=== PATIENT | male | born 1965 | race Caucasian/White ===

== ENCOUNTER 2018-03-21 15:38 | Emergency (ER) | payer MEDICAID ==
[~2018-03-21] VITALS: Ht 165.1 cm; Wt 95.0 kg
[2018-03-21 16:26] LABS: BASOPHILS % (AUTO) 0.5 % (0-1); EOSINOPHILS # (AUTO) 0.2 X10'3 (0-0.9); EOSINOPHILS % (AUTO) 2.6 % (0-6); HEMATOCRIT 47.6 % (42.0-52.0); HEMOGLOBIN 16.1 g/dl (14.0-17.9); LYMPHOCYTES # (AUTO) 1.4 X10'3 (1.1-4.8); LYMPHOCYTES % (AUTO) 16.5 % (21-51); MEAN CORPUSCULAR HEMOGLOBIN 30.6 PG (27.0-31.0); MEAN CORPUSCULAR HGB CONC 33.9 % (33.0-36.5); MEAN CORPUSCULAR VOLUME 90.5 FL (78-98); MEAN PLATELET VOLUME 8.4 FL (7.4-10.4); MONOCYTES # (AUTO) 0.8 X10'3 (0-0.9); MONOCYTES % (AUTO) 9.9 % (2-12); NEUTROPHILS % (AUTO) 70.5 % (42-75); PLATELET COUNT 220 X10'3 (140-440); RED BLOOD COUNT 5.27 X10'6 (4.70-6.10); RED CELL DISTRIBUTION WIDTH 13.6 % (11.5-14.5); WHITE BLOOD COUNT 8.5 X10'3 (4.5-11.0)
[2018-03-21 16:40] LABS: ALANINE AMINOTRANSFERASE 102 U/L (12-78); ALBUMIN 3.6 G/DL (3.4-5.0); ALBUMIN/GLOBULIN RATIO 0.9 (1.1-1.5); ALKALINE PHOSPHATASE 95 IU/L (46-116); ANION GAP 8 (8-16); ASPARTATE AMINO TRANSFERASE 40 U/L (10-37); BILIRUBIN,TOTAL 0.4 MG/DL (0.1-1.0); BLOOD UREA NITROGEN 15 MG/DL (7-18); BUN/CREATININE RATIO 11.5 (5.4-32.0); CALCIUM 9.1 MG/DL (8.5-10.1); CHLORIDE 97 MMOL/L (99-107); GLUCOSE 240 MG/DL (70-104); POTASSIUM 3.8 MMOL/L (3.5-5.1); SODIUM 134 MMOL/L (135-145); TOTAL CARBON DIOXIDE 29.2 MMOL/L (24-32); TOTAL PROTEIN 7.8 G/DL (6.4-8.2); eGFR 58 ML/MIN
[2018-03-21 16:49] LABS: ETHANOL < 0.010 GM/DL (0.0-0.010)
[2018-03-21 17:47] VITALS: BP 185/112
== END 2018-03-21 17:48 | disposition home or self-care (01) ==
LOC: ER 15:39
DX: E11.9 Type 2 diabetes mellitus without complications (principal); R44.2 Other hallucinations; I10 Essential (primary) hypertension; R94.5 Abnormal results of liver function studies; E66.9 Obesity, unspecified
CPT/HCPCS: 36415; 70450; 80053; 80320; 84443; 84484; 85025; 99285

== ENCOUNTER 2018-08-30 05:58 | Emergency (ER) | payer MEDICAID ==
[~2018-08-30] VITALS: Ht 165.1 cm; Wt 77.8 kg
[2018-08-30 06:14] VITALS: BP 139/94
[2018-08-30] MEDS ORDERED: CLIN-96 PO (06:49)
[2018-08-30] MEDS ORDERED: CIPR-230 PO (06:49)
== END 2018-08-30 07:06 | disposition home or self-care (01) ==
LOC: ER 05:58
DX: K11.20 Sialoadenitis, unspecified (principal); I10 Essential (primary) hypertension; Z98.890 Other specified postprocedural states; Z79.2 Long term (current) use of antibiotics
CPT/HCPCS: 99283

== ENCOUNTER 2025-01-07 12:02 | Inpatient (IN) | payer MEDICAID ==
[~2025-01-07] VITALS: Ht 162.6 cm; Wt 82.7 kg
[~2025-01-07 12:02] MED LIST: CLIN-224 PO
[2025-01-07 12:54] LABS: MEAN PLATELET VOLUME 8.7 FL (7.4-10.4); RED CELL DISTRIBUTION WIDTH 14.3 % (11.5-14.5)
[2025-01-07 13:05] LABS: CREATININE 0.90 MG/DL (0.60-1.10); TOTAL CARBON DIOXIDE 24.3 MMOL/L (24-32); eCRCL 76 ML/MIN; eGFR 87 ML/MIN
--- NOTE | 2025-01-07 13:09 | RADIOLOGY REPORT ---
EXAM: DI CHEST,SINGLE VIEW Indication: pain Technique: Single frontal view of the chest was obtained Comparison: None FINDINGS: Lines and Tubes: None Lungs: No focal consolidation. Pleura: No effusion. No pneumothorax. Cardiomediastinal contours: Unremarkable Bones: No acute osseous abnormality. IMPRESSION: No acute cardiopulmonary disease.
[2025-01-07 13:29] LABS: LEUKOCYTE ESTERASE ,URINE NEGATIVE (Neg); NITRITES, URINE NEGATIVE (Neg); OCCULT BLOOD,URINE TRACE-INTACT (Neg)
[2025-01-07 13:32] LABS: UA COLLECTION TYPE CLN CATCH MIDSTREAM
[2025-01-07 13:46] LABS: MUCUS STRANDS MODERATE /LPF (Neg); SQUAMOUS EPITHELIAL CELL,UR FEW /LPF (FEW)
[2025-01-07 13:47] LABS: COARSE GRANULAR CAST 0-3 /LPF (NEGATIVE)
--- NOTE | 2025-01-07 15:27 | Physician Documentation ---
History of Present Illness ~ Chief Complaint: Bite-animal Stated Complaint: HAND SWELLING Time Seen by MD: 14:12 Primary Medical Doctor: Tesha Champagne [facility] This very pleasant 59-year-old male diabetic presents to the ED with a complaint of a cat bite which occurred two days ago. States that pain and swelling has not increased in his left hand and redness has started traveling up his left arm into his axillary region where he is very tender. States he felt generally ill the last day and thought he could gets through the developing infection however today he presents for evaluation Denies any nausea vomiting or diarrhea Day of Onset: Jan 07, 2025 Tetanus within 5 years?: No Medication Reconciliation Allergies: Coded Allergies: No Known Allergies (Unverified , 03/21/18) Miscellaneous Medications Home Med List (No Home Medications), (Reported) Discontinued Medications Clindamycin HCL* (Clindamycin HCL*), 1 CAP PO Q6H Discontinued Reason: patient no longer taking Past Medical History Past Medical History: Hypertension, Extremity Fracture Past Surgical History: orthopedic surgeries Alcohol Use: Occasionally Drug Use: none Lives In: Home Review of Systems All Other Systems at this time: Reviewed and Negative ROS As stated above in the HPI, otherwise all systems are reviewed and negative. Constitutional: Reports: no symptoms reported Physical Exam Vital Signs: Temperature: 99.2, Source: Oral, Heart Rate: 95, Respiratory Rate: 18, BP: 156/104, Pulse Oximetry: 95, Weight: 82.700 Oxygen Flow Rate: 0 Physical Exam General: Alert, no apparent distress. Extremities: Normal range of motion, no deformity. Notable swelling in the left hand with gross erythema. Erythema travels up the left arm into the axillary region. Tender lymph nodes in the axillary region Neurologic: Oriented x4. Psychiatric: Normal mood and affect. Skin: Normal color, warm and dry. No edema, no ecchymosis. Progress Results/Orders Results/Orders Orders - SY WATSON HOUSE DECORATOR Hand, Complete (3vw Min) (01/07/25 16:19) Page Hospitalist (01/07/25 ) Completed Orders - SY WATSON HOUSE DECORATOR Hand, Complete (3vw Min) (01/07/25 16:19) Ampicillin/Sulbac 3gm/Ns 100ml (Unasyn 3 (01/07/25 15:54) Normal Saline 1000ml (0.9% Sodium Chlori (01/07/25 15:20) Medications Received in ER Medications (Trade) Dose Ordered Sig/Magdalena Route PRN Reason Start Time Stop Time Status Last Admin Dose Admin (0.9% sodium chloride (NS) 1000ml IV soln) 2,000 ml ONCE ONCE IVB 01/07/25 15:20 01/07/25 15:21 DC 01/07/25 15:48 2,000 ML Vital Signs 01/07/25 01/07/25 01/07/25 01/07/25 12:26 12:55 13:55 15:13 Temp 99.2 Pulse 100 96 98 95 Resp 18 18 17 18 B/P (MAP) 179/100 162/98 (119) 181/107 (131) 156/104 (121) Pulse Ox 98 98 97 95 O2 Flow Rate 0 0 0 Laboratory Tests Test 01/07/25 12:40 01/07/25 13:17 White Blood Count 11.1 H Red Blood Count 5.30 Hemoglobin 16.5 Hematocrit 48.9 Mean Corpuscular Volume 92.1 Mean Corpuscular Hemoglobin 31.2 H Mean Corpuscular Hemoglobin Concent 33.8 Red Cell Distribution Width 14.3 Platelet Count 181 Mean Platelet Volume 8.7 Neutrophils (%) (Auto) 76.7 H Lymphocytes (%) (Auto) 11.0 L Monocytes (%) (Auto) 11.1 Eosinophils (%) (Auto) 0.6 Basophils (%) (Auto) 0.6 Neutrophils # (Auto) 8.5 H Lymphocytes # (Auto) 1.2 Monocytes # (Auto) 1.2 H Eosinophils # (Auto) 0.1 Basophils # (Auto) 0.1 CBC Comment Sodium Level 134 L Potassium Level 4.0 Chloride Level 98 L Carbon Dioxide Level 24.3 Anion Gap 12 Blood Urea Nitrogen 14 Creatinine 0.90 Estimated GFR/1.73 m2 87 BUN/Creatinine Ratio 15.6 Glucose Level 239 H Lactic Acid Level 1.5 Calcium Level 9.3 Albumin 3.8 Procalcitonin < 0.05 Chemistry Comments Urine Specimen Description Cln catch midstream Urine Color Dark yellow Urine Clarity Clear Urine pH 6.0 Urine Specific Valera >=1.030 Urine Protein 100 H Urine Glucose (UA) 100 H Urine Ketones 15 H Urine Occult Blood Trace-intact Urine Nitrite Negative Urine Bilirubin Small Urine Urobilinogen 1.0 Urine Leukocyte Esterase Negative Urine RBC 0-2 Urine WBC 0-4 Urine Squamous Epithelial Cells Few Urine Bacteria Few Urine Coarse Granular Casts 0-3 Urine Mucus Moderate Urine Culture Indicated Not ind Volume Urine Centrifuged 10 ml Urine Comment Microbiology Date/Time Source Procedure Growth Status 01/07/25 12:44 Blood Arm Right Blood Culture - Preliminary NEGATIVE (LESS THAN 24 HOURS) Resulted Medical Decision Making Findings Due to this patient being a diabetic and having the early stages of a developing cat bite infection he is high risk for failed outpatient antibiotic therapy.. Requested hospital admission for these reasons and along with the IV antibiotics and fluid resuscitation Differential Dx:Considerations: Include: Abrasion, Allergic reaction, Anaphylaxis, Cellulitis, Contusion, Fracture, Hematoma, Insect envenomation, Laceration, Neurovascular injury, Punture wound, Retained foreign body, Urticari a, Other Departure Disposition: 09 ADMITTED INPATIENT Impression: Primary Impression: Cat bite Referrals: NO PRIMARY CARE PROVIDER (PCP) Signature Scribe Signature: v Attestation: Scribed for Sy Watson Spray Painter Helper by Sy Jackson NP . 01/07/25 15:25 SY WATSON NP Jan 07, 2025 15:26
[2025-01-07] MEDS: normal saline 1000ML IV soln IVB ONE (15:48)
[2025-01-07] MEDS ORDERED: HYDROcodone/acetaminophen 10/325mg tab PO PRN (16:10)
[2025-01-07] MEDS ORDERED: mag hydrox/Alum hydrox/simeth 30ml oral suspension PO PRN (16:10)
[2025-01-07] MEDS ORDERED: potassium Cl 40MEQ/1/2NS 520ml 520 ML IV PRN (16:10)
[2025-01-07] MEDS ORDERED: magnesium sulf-water 2g/50mL 50 ML IV PRN (16:10)
[2025-01-07] MEDS ORDERED: ondansetron/PF 4mg/2ml inj IV PRN (16:10)
[2025-01-07] MEDS ORDERED: magnesium hydroxide 30ml (MOM) UD suspension PO PRN (16:10)
[2025-01-07] MEDS ORDERED: magnesium sulf-water 4G/100mL 100 ML IV PRN (16:10)
[2025-01-07] MEDS ORDERED: magnesium Cl slow-release 64mg tablet PO PRN (16:10)
[2025-01-07] MEDS ORDERED: potassium Cl 20 mEq SR tablet PO PRN (16:10)
[2025-01-07] MEDS ORDERED: haloperidol lactate 5mg/ml inj IM PRN (16:15)
[2025-01-07] MEDS ORDERED: glucagon, human recombinant 1mg kit SUBCUT PRN (16:15)
[2025-01-07] MEDS ORDERED: DEXTROSE 15 GM of carb/4 tabs (each vial/BOTTLE has 4 tablets) PO PRN ×2 (16:15)
[2025-01-07] MEDS ORDERED: tetanus & diphtheria toxoid (Td) vaccine 0.5ml SYRINGE IMVAC ONE ×2 (16:15→17:35)
[2025-01-07] MEDS: ampicillin/sulbac 3gm/NS 100ml 100 ML IV ONE (16:15)
[2025-01-07] MEDS ORDERED: dextrose 50%-water 50ml dispensing syringe IV PRN ×2 (16:15)
--- NOTE | 2025-01-07 16:34 | HISTORY AND PHYSICAL-Residence ---
History & Physical Providers to CC Resident Creating Document: ROSE LAYPAUL ~ History of Present Illness Primary Medical Doctor: Tesha Champagne Reason for Admit\Complaint: Left hand cellulitis History of Present Illness This is a 59-year-old male patient with a past medical history of alcohol use disorder, untreated type 2 diabetes mellitus and hypertension, presented to the ER for progressive pain, erythema and warmth in the left hand radiating to the forearm after a cat bite two days ago. These symptoms have worsened significantly today and are associated with left axillar lymphadenopathy. He had one episode of 101F yesterday but denies nausea, vomiting or any systemic symptoms. Patient has type 2 diabetes mellitus and hypertension but has not taking any medication for the last few months because he has increased the alcohol intake to almost half bottle of vodka every night. Patient does not remember last tetanus shot, probably more than five years ago.No other complaint reported. Allergies: Coded Allergies: No Known Allergies (Unverified , 03/21/18) Home Medications Home Medications Active Clindamycin HCL* (Clindamycin HCl) 300 Mg Capsule 1 Cap PO Q6H Past Medical History Past Medical History Untreated type 2 diabetes mellitus Untreated hypertension Alcohol use disorder Past Surgical History Surgical History Comment None Past Social History Smoking: Non-Smoker Alcohol Use: Heavy Drug Use: None Lives with: Alone Lives In: Home Occupation: other ROS All Other Systems: Reviewed and Negative Constitutional: Reports: no symptoms reported Eyes: Reports: no symptoms reported ENT: Reports: no symptoms reported Respiratory: Reports: no symptoms reported Cardiovascular: Reports: no symptoms reported Gastrointestinal: Reports: no symptoms reported Genitourinary: Reports: no symptoms reported Male Genitalia: Reports: no symptoms reported Neurological: Reports: no symptoms reported Musculoskeletal: Reports: joint pain Integumentary: Reports: see HPI, lesions Allergic/Immunologic: Reports: no symptoms reported Hematologic/Lymphatic: Reports: no symptoms reported Endocrine: Reports: no symptoms reported Psychiatric: Reports: no symptoms reported Exam Vitals: Vital Signs Date Time Temp Pulse Resp B/P (MAP) Pulse Ox O2 Delivery O2 Flow Rate FiO2 01/07/25 15:13 95 18 156/104 (121) 95 0 01/07/25 12:26 99.2 General: General: Awake and Alert, no acute distress. HEENT: Conjunctiva pink, Sclera clear, Mucus Membranes moist. Neck: Supple without masses and tenderness. Resp: Unlabored. Lungs clear to auscultation bilaterally. Heart: Regular Rate and rhythm, normal S1 and S2 without murmur, rub or gallop. Abdomen: Soft and non tender no organomegaly Extremities: No cyanosis,clubbing or edema. Skin: Warm and Dry. Perforated lesion in the dorsal aspect of the left hand associated with significant left hand erythema, warmth extending through the forearm up into the axilla. Palpable left axillary lymphadenopathy. Diagnostic Data Last Recorded Lab Results: 01/07/25 1240 01/07/25 1240 Advance Care Planning Advanced Care plannin - 30 Minutes (Patient wants to be full code) Additional Plan Assessment and plan 1. Sepsis secondary to severe left hand cellulitis secondary to cat bite 2. Left upper extremity lymphangitis Assessment Domestic cat bite in the left head two days ago Rapidly progressive erythema, warmth, pain and lymphadenopathy WBC 11.1, procalcitonin < 0.05, lactic acid 1.5 3 SIRS criteria (Temp > 100.4, Heart rate > 90, present source of infection) Left hand x-ray: Mild dorsal hand soft tissue edema. Plan Received one dose of ampicillin sulbactam in the ER Received 2000 mL of normal saline in the ER Started on Zosyn q8h Started on lactated ringer 100 mL/hr Ordered tetanus vaccine Ordered left hand MRI 3. Untreated type 2 diabetes mellitus 4. Untreated hypertension Assessment Patient noncompliant with medication for months BP 181/107mmHg, glucose 239 Plan Ordered A1c Ordered lipid panel, BNP Started on Lantus 12 units Started on lisinopril 10 mg Hyper/hypoglycemia protocol placed Hydralazine 10 mg IV p.r.n. 5. Alcohol use disorder Patient drinks half a bottle of vodka every night Mild alcohol withdrawal protocol placement Social service consulted Code Status: Full code DVT prophylaxis: Enoxaparin Analgesia/sedation: Morphine/[place] Line/tube: PIV GI prophylaxis: None Nutrition: 75g carb diet Prognosis: Guarded Physical therapy: Ordered Disposition: Admit to surgical floor. Pending left hand MRI. Resident MD attestation The above note has been reviewed and supervised by a senior resident PGY2/PGY3 Patient was seen, examined and discussed with the attending physician Date of Service: Jan 07, 2025 Billing Provider: LIZ CHAN MD Common Visit Codes: [id number] INP/OBS CARE (HIGH) Secondary Visit Codes: [id number] CARE PLAN 30 MINUTES ROSE LAY, RES Jan 07, 2025 16:34 LIZ CHAN MD Jan 09, 2025 07:42
[2025-01-07] MEDS ORDERED: NO HOME MEDS (16:36)
--- NOTE | 2025-01-07 16:46 | RADIOLOGY REPORT ---
CLINICAL INDICATION: animal bite LT. HAND TECHNIQUE: 3 radiographic views of the left hand were obtained. Comparison: None FINDINGS/IMPRESSION: There is no evidence of acute fracture or dislocation. The visualized joint space is well maintained. The alignment is anatomical. There is no radiopaque foreign body. Mild dorsal hand soft tissue edema.
[2025-01-07] MEDS: ringers solution, lacted 1,000 ML IV SCH (16:56)
[2025-01-07] MEDS: INSULIN LISPRO 100 UNIT/ML INSULN.PEN MULTI-DOSE SQ SCH (17:25)
[2025-01-07 18:00] VITALS: BP 159/93; PULSE 94; RESP 17; TEMP 98.1; O2SAT 99
[2025-01-07 18:48] LABS: CHOL/HDL RATIO 3.3 (0.00-4.99); LDL CHOLESTEROL 153 MG/DL (50-100); PRO BRAIN NATRIURETIC PEPTIDE 142 PG/ML (0-125)
[2025-01-07 20:00] VITALS: RESP 18; O2SAT 96
[2025-01-07] MEDS: K and/or MAG REPLACEMENT MC SCH (20:00)
--- NOTE | 2025-01-07 21:49 | RADIOLOGY REPORT ---
EXAM: MR MRI UPPER EXTREMITY LEFT DATE OF SERVICE: 01/07/2025 08:47 PM ORDERING PHYSICIAN: LIZ CHAN RES REASON FOR EXAM: Concern for osteomyelitis after cat bite TECHNIQUE: MRI images of the left wrist were acquired without IV contrast. COMPARISON: None FINDINGS: Evaluation is limited due to image degradation secondary to patient motion. There is diffuse soft tissue swelling. There is no abnormal bone marrow signal changes to suggest acu te osteomyelitis. No discrete fluid collection is seen. The muscular volume is maintained with no yvonne dence for significant myositis. The major extension add flexor tendons of the wrist are intact with no evidence for significant tenos ynovitis. IMPRESSION: Extensive cellulitis. No Mr. evidence for acute osteomyelitis.
[2025-01-07 22:00] VITALS: BP 153/98; PULSE 88; RESP 16; TEMP 98.2; O2SAT 96
[2025-01-07] MEDS: HYDROcodone/acetaminophen 5mg/325mg tablet PO PRN (22:05)
[2025-01-07] MEDS: docusate sod 100mg capsule PO SCH (22:05)
[2025-01-07] MEDS: insulin glargine (Lantus) pen - multi-dose SQ SCH (22:24)
[2025-01-07] MEDS: piperacillin/tazo 3.375gm/50ml 50 ML IV SCH (23:09)
[2025-01-08] VITALS (8 sets, daily range): BP systolic 124–171; BP diastolic 77–98; PULSE 87–95; RESP 16–18; TEMP 97.4–98.6; O2SAT 97–99
[2025-01-08 04:47] LABS: INR 1.1 INR
[2025-01-08 04:58] LABS: CREATININE 0.70 MG/DL (0.60-1.10); PHOSPHORUS 2.9 MG/DL (2.3-4.5); TOTAL CARBON DIOXIDE 22.7 MMOL/L (24-32); eCRCL 97 ML/MIN; eGFR > 90 ML/MIN
[2025-01-08 06:49] LABS: MEAN PLATELET VOLUME 8.6 FL (7.4-10.4); RED CELL DISTRIBUTION WIDTH 13.6 % (11.5-14.5)
[2025-01-08] MEDS: tetanus & diphtheria toxoid (Td) vaccine 0.5ml SYRINGE IMVAC ONE (07:27)
[2025-01-08] MEDS: enoxaparin 40mg/0.4ml syringe SUBCUT SCH (07:34)
[2025-01-08] MEDS: multivitamins, therapeutics tablet PO SCH (07:34)
--- NOTE | 2025-01-08 17:30 | PROGRESS NOTE- Residence ---
Progress Note - Resident Providers to CC Resident Creating Document: ROSE LAY RES ~ Antibiotic Timeout Antibiotic Ordered?: No Subjective Patient seen and examined at the bedside. He states significant improvement of the pain, redness and warmth compared to yesterday. No overnight events reported. Objective Vital Signs Date Time Temp Pulse Resp B/P (MAP) Pulse Ox O2 Delivery O2 Flow Rate FiO2 01/08/25 10:00 98.0 95 17 142/85 (104) 97 Room Air 01/08/25 08:00 0.0 Result Diagram: 01/08/25 0635 01/08/25 0419 General: Awake and Alert, no acute distress. HEENT: Conjunctiva pink, Sclera clear, Mucus Membranes moist. Neck: Supple without masses and tenderness. Resp: Unlabored. Lungs clear to auscultation bilaterally. Heart: Regular Rate and rhythm, normal S1 and S2 without murmur, rub or gallop. Abdomen: Soft and non tender no organomegaly Extremities: No cyanosis,clubbing or edema. Skin: Warm and Dry. Perforated lesion in the dorsal aspect of the left hand associated with left hand erythema, warmth extending through the forearm up into the axilla, improving from yesterday. Palpable left axillary lymphadenopathy. Coagulation Studies Laboratory Tests Test 01/08/25 04:19 Prothrombin Time 10.8 SECONDS (9.0-12.0) INR International Normalized Ratio 1.1 INR Coagulation Comments Plan Plan Assessment and plan 1. Sepsis secondary to severe left hand cellulitis secondary to cat bite 2. Left upper extremity lymphangitis Assessment Domestic cat bite in the left head two days ago Rapidly progressive erythema, warmth, pain and lymphadenopathy WBC 11.1, procalcitonin < 0.05, lactic acid 1.5 3 SIRS criteria (Temp > 100.4, Heart rate > 90, present source of infection) Left hand x-ray: Mild dorsal hand soft tissue edema. Plan Received one dose of ampicillin sulbactam in the ER Received 2000 mL of normal saline in the ER Started on Zosyn q8h Started on lactated ringer 100 mL/hr Ordered tetanus vaccine Ordered left hand MRI 01/08/2025 Left upper extremity MRI: Extensive cellulitis. No Mr. evidence for acute osteomyelitis. WBC 9.5 Marked improvement from yesterday Zosyn downgraded to ampicillin sulbactam 3. Untreated type 2 diabetes mellitus 4. Untreated hypertension Assessment Patient noncompliant with medication for months BP 181/107mmHg, glucose 239 Plan Ordered A1c Ordered lipid panel, BNP Started on Lantus 12 units Started on lisinopril 10 mg Hyper/hypoglycemia protocol placed Hydralazine 10 mg IV p.r.n. 01/08/2025 A1c 10.8 Glucometer 239 to 315 Lantus increased to 20 units daily 5. Alcohol use disorder Patient drinks half a bottle of vodka every night No signs of withdrawal Mild alcohol withdrawal protocol placement Social service consulted Code Status: Full code DVT prophylaxis: Enoxaparin Analgesia/sedation: Morphine/[place] Line/tube: PIV GI prophylaxis: None Nutrition: 75g carb diet Prognosis: Guarded Physical therapy: Ordered Disposition: Continue medical therapy. Possible discharge tomorrow. Resident MD attestation The above note has been reviewed and supervised by a senior resident PGY2/PGY3 Patient was seen, examined and discussed with the attending physician Date of Service: Jan 08, 2025 Billing Provider: LIZ CHAN MD Common Visit Codes: [id number] INP/OBS CARE(HIGH) ROSE LAY, RES Jan 08, 2025 17:30 LIZ CHAN MD Jan 09, 2025 07:43
[2025-01-08] MEDS: insulin glargine (Lantus) pen - multi-dose SQ SCH (22:29)
[2025-01-08] MEDS: ampicillin/sulbac 3gm/NS 100ml 100 ML IV SCH (22:30)
[2025-01-09 04:42] LABS: MEAN PLATELET VOLUME 8.9 FL (7.4-10.4); RED CELL DISTRIBUTION WIDTH 13.8 % (11.5-14.5)
[2025-01-09 04:47] LABS: INR 1.0 INR
[2025-01-09 05:00] LABS: CREATININE 0.78 MG/DL (0.60-1.10); PHOSPHORUS 3.5 MG/DL (2.3-4.5); TOTAL CARBON DIOXIDE 24.2 MMOL/L (24-32); eCRCL 87 ML/MIN; eGFR > 90 ML/MIN
[2025-01-09 06:56] VITALS: BP 151/92; PULSE 88; RESP 18; TEMP 98.1; O2SAT 98
[2025-01-09 07:45] VITALS: RESP 18; O2SAT 98
[2025-01-09] MEDS: potassium Cl 20 mEq SR tablet PO PRN (09:42)
[2025-01-09 10:00] VITALS: BP 180/99; PULSE 90; RESP 17; TEMP 97.5; O2SAT 95
[2025-01-09] MEDS ORDERED: AMOX-580 PO (12:02)
[2025-01-09] MEDS ORDERED: LISI20TA28 PO (12:02)
[2025-01-09] MEDS ORDERED: LANTUS SQ (12:02)
[2025-01-09 12:09] VITALS: PULSE 89
[2025-01-09] MEDS: hydrALAZINE 20mg/ml inj. IV PRN (12:09)
[2025-01-09 14:26] VITALS: BP 158/84
--- NOTE | 2025-01-09 19:01 | DISCHARGE SUMMARY-Residence ---
Discharge Summary Providers to CC Resident Creating Document: ROSE LAY RES ~ Discharge Summary Admission Diagnosis: Left upper extremity cellulitis Hospital Course DATE OF ADMISSION: 01/07/2025 DATE OF DISCHARGE: 01/09/2025 CXR: No acute cardiopulmonary disease. Hand x-ray: Mild dorsal hand soft tissue edema. Hand MRI: There is diffuse soft tissue swelling. There is no abnormal bone marrow signal changes to suggest acute osteomyelitis. No discrete fluid collection is seen. The muscular volume is maintained with no evidence for significant myositis. The major extension add flexor tendons of the wrist are intact with no evidence for significant tenosynovitis. Laboratory Tests Test 01/07/25 22:11 01/08/25 04:19 01/08/25 06:35 01/08/25 07:10 Glucometer 315 mg/dl 196 mg/dl CBC Comment Prothrombin Time 10.8 SECONDS INR International Normalized Ratio 1.1 INR Coagulation Comments Sodium Level 136 MMOL/L Potassium Level 3.5 MMOL/L Chloride Level 103 MMOL/L Carbon Dioxide Level 22.7 MMOL/L Anion Gap 10 Blood Urea Nitrogen 11 MG/DL Creatinine 0.70 MG/DL Estimated GFR/1.73 m2 > 90 ML/MIN BUN/Creatinine Ratio 15.7 Glucose Level 152 MG/DL Calcium Level 8.3 MG/DL Phosphorus Level 2.9 MG/DL Magnesium Level 2.2 MG/DL Albumin 3.0 G/DL Amylase Level 34 U/L Lipase 62 U/L Chemistry Comments White Blood Count 9.5 X10'3 Red Blood Count 4.88 X10'6 Hemoglobin 15.3 g/dl Hematocrit 44.5 % Mean Corpuscular Volume 91.3 FL Mean Corpuscular Hemoglobin 31.3 PG Mean Corpuscular Hemoglobin Concent 34.3 g/dL Red Cell Distribution Width 13.6 % Platelet Count 143 X10'3 Mean Platelet Volume 8.6 FL Neutrophils (%) (Auto) 72.2 % Lymphocytes (%) (Auto) 13.3 % Monocytes (%) (Auto) 12.5 % Eosinophils (%) (Auto) 1.5 % Basophils (%) (Auto) 0.5 % Neutrophils # (Auto) 6.8 X10'3 Lymphocytes # (Auto) 1.3 X10'3 Monocytes # (Auto) 1.2 X10'3 Eosinophils # (Auto) 0.1 X10'3 Basophils # (Auto) 0.1 X10'3 Test 01/08/25 09:41 01/08/25 12:08 01/08/25 17:39 01/08/25 22:18 Glucometer 307 mg/dl 287 mg/dl 240 mg/dl 281 mg/dl Test 01/09/25 04:09 01/09/25 07:58 01/09/25 12:05 White Blood Count 7.4 X10'3 Red Blood Count 4.76 X10'6 Hemoglobin 14.9 g/dl Hematocrit 43.6 % Mean Corpuscular Volume 91.6 FL Mean Corpuscular Hemoglobin 31.2 PG Mean Corpuscular Hemoglobin Concent 34.1 g/dL Red Cell Distribution Width 13.8 % Platelet Count 178 X10'3 Mean Platelet Volume 8.9 FL Neutrophils (%) (Auto) 63.5 % Lymphocytes (%) (Auto) 19.2 % Monocytes (%) (Auto) 13.4 % Eosinophils (%) (Auto) 3.0 % Basophils (%) (Auto) 0.9 % Neutrophils # (Auto) 4.7 X10'3 Lymphocytes # (Auto) 1.4 X10'3 Monocytes # (Auto) 1.0 X10'3 Eosinophils # (Auto) 0.2 X10'3 Basophils # (Auto) 0.1 X10'3 CBC Comment Prothrombin Time 10.3 SECONDS INR International Normalized Ratio 1.0 INR Coagulation Comments Sodium Level 137 MMOL/L Potassium Level 3.4 MMOL/L Chloride Level 102 MMOL/L Carbon Dioxide Level 24.2 MMOL/L Anion Gap 11 Blood Urea Nitrogen 7 MG/DL Creatinine 0.78 MG/DL Estimated GFR/1.73 m2 > 90 ML/MIN BUN/Creatinine Ratio 9.0 Glucose Level 168 MG/DL Calcium Level 8.6 MG/DL Phosphorus Level 3.5 MG/DL Magnesium Level 2.2 MG/DL Albumin 3.2 G/DL Amylase Level 42 U/L Lipase 117 U/L Chemistry Comments Glucometer 189 mg/dl 281 mg/dl Discharge Diagnosis\Comment: 1. Sepsis secondary to severe left hand cellulitis secondary to cat bite 2. Left upper extremity lymphangitis 3. Untreated type 2 diabetes mellitus 4. Untreated hypertension 5. Alcohol use disorder Operations\Procedures: None Consultants: None Complications: None Condition on DC: Stable New Medications: Amox Tr/Potassium Clavulanate 875/125 MG (Augmentin 875/125 MG) 875 Mg-125 Mg Tablet 1 TAB PO BID for 7 Days, #14 TAB Insulin Glargine,Hum.rec.anlog* (Lantus*) 100 Unit/1 Ml Vial 25 UNITS SQ HS for 30 Days, #1 VIAL Lisinopril (Lisinopril) 20 Mg Tablet 1 TAB PO DAILY for 30 Days, #30 TAB Discharge Summary: History of present illness This is a 59-year-old male patient with a past medical history of alcohol use disorder, untreated type 2 diabetes mellitus and hypertension, presented to the ER for progressive pain, erythema and warmth in the left hand radiating to the forearm after a cat bite two days ago. These symptoms have worsened significantly today and are associated with left axillar lymphadenopathy. He had one episode of 101F yesterday but denies nausea, vomiting or any systemic symptoms. Patient has type 2 diabetes mellitus and hypertension but has not taking any medication for the last few months because he has increased the alcohol intake to almost half bottle of vodka every night. Patient does not remember last tetanus shot, probably more than five years ago.No other complaint reported. Hospital course 59-year-old male patient admitted for extensive cellulitis of the hand secondary to cat bite and most likely aggravated by untreated and uncontrolled type 2 diabetes mellitus. The patient was treated initially with Zosyn and then downgraded to ampicillin sulbactam. The patient had significant improvement after two days of antibiotics. He was found to have uncontrolled type 2 diabetes mellitus and uncontrolled hypertension for which he was started on lisinopril and Lantus. The patient can finish the antibiotic course outpatient and is stable to be discharged. Discharge physical exam General: Awake and Alert, no acute distress. HEENT: Conjunctiva pink, Sclera clear, Mucus Membranes moist. Neck: Supple without masses and tenderness. Resp: Unlabored. Lungs clear to auscultation bilaterally. Heart: Regular Rate and rhythm, normal S1 and S2 without murmur, rub or gallop. Abdomen: Soft and non tender no organomegaly Extremities: No cyanosis,clubbing or edema. Skin: Warm and Dry. Perforated lesion in the dorsal aspect of the left hand associated with left hand erythema, warmth extending through the forearm up into the axilla, improving from yesterday. Palpable left axillary lymphadenopathy. Discharge medication See below Discharge instructions Follow up with your primary care doctor in 1 week Monitor your blood pressure and your glucose level daily and adjust accordingly Take Augmentin twice a day for 7 days Take lisinopril 20mg daily Start on lantus 25 units at bedtime Observe your cat for 10 days and come back in case it dies or develops signs of rabies Come back in case of fever, worsening pain, redness or any concerning symptoms *Problems/Diagnosis: (1) Type 2 diabetes mellitus (2) Hypertension (3) Cellulitis of hand (4) Lymphangitis (5) Cat bite Status: Acute Total Time Spent on D/C: > 30 Minutes Date of Service: Jan 09, 2025 Billing Provider: LIZ CHAN MD Common Visit Codes: [id number] DISCH DAY >30min ROSE LAY, RES Jan 09, 2025 19:01 LIZ CHAN MD Jan 09, 2025 22:15
== END 2025-01-09 16:44 | disposition home health service (06) | DRG 720 ==
LOC: ER 12:02 → ED HOLD 15:43 → SUR 3N 16:20
PROVIDERS: ADMIT Internal Medicine; ATTEND Internal Medicine
DX: A41.9 Sepsis, unspecified organism (principal); E11.9 Type 2 diabetes mellitus without complications; I10 Essential (primary) hypertension; L03.114 Cellulitis of left upper limb; S61.452A Open bite of left hand, initial encounter; Z91.148 Patient's other noncompliance with medication regimen for other reason; W55.01XA Bitten by cat, initial encounter; Y93.89 Activity, other specified; Y92.89 Other specified places as the place of occurrence of the external cause; Y99.8 Other external cause status
CPT/HCPCS: 36415; 71045; 73130; 73218; 80048; 80061; 80076; 81001; 82150; 82948; 83036; 83605; 83690; 83735; 83880; 84100; 84145; 85025; 85610; 85651; 87040; 87081; 90715; 96365; 96375; 99285; G0378; J0295; J0360; J1650; J1815; J2543; J7030; J7120